=== PATIENT | female | born 1980 | race Hispanic/Latino ===

== ENCOUNTER 2019-08-26 08:23 | Day surgery (SDC) | payer SELFPAY ==
[~2019-08-26] VITALS: Ht 154.9 cm; Wt 72.6 kg
[~2019-08-26 08:23] MED LIST: BIRTH CONTROL PO; EXCEDRI2 OR; LORTAB 5 OR; PENICILLN VK500 MG OR
[2019-08-26] MEDS ORDERED: PERCOCET 5/325M1 TAB PO (12:13)
[2019-08-26 13:35] VITALS: BP 125/70
== END 2019-08-26 12:56 | disposition home or self-care (01) | DRG 419 ==
LOC: ORM 08:23
PROVIDERS: ATTEND Surgery
PROC: 0FT44ZZ Resection of Gallbladder, Percutaneous Endoscopic Approach (ICD-10-PCS; principal; 2019-08-26)
DX: K80.10 Calculus of gallbladder with chronic cholecystitis without obstruction (principal)
CPT/HCPCS: J0131; J2710

== ENCOUNTER 2019-09-14 15:52 | Emergency (ER) | payer SELFPAY ==
[~2019-09-14] VITALS: Ht 154.9 cm; Wt 155.0 kg
[~2019-09-14 15:52] MED LIST changes: +PERCOCET 5/325M1 TAB PO
[2019-09-14] MEDS ORDERED: PEPCID20 MG PO (17:34)
[2019-09-14] MEDS ORDERED: BENADRYL 25MG C25 MG PO (17:34)
[2019-09-14] MEDS ORDERED: MEDDOSEPAK PO (17:34)
[2019-09-14 18:15] VITALS: BP 123/77
== END 2019-09-14 18:15 | disposition home or self-care (01) | DRG 607 ==
LOC: ED 15:52
DX: L50.0 Allergic urticaria (principal); J02.9 Acute pharyngitis, unspecified

== ENCOUNTER 2022-02-14 18:58 | Emergency (ER) | payer OTHER ==
[~2022-02-14] VITALS: Ht 154.9 cm; Wt 72.0 kg
[~2022-02-14 18:58] MED LIST changes: +BENADRYL 25MG C25 MG PO; +MEDDOSEPAK PO; +PEPCID20 MG PO
[2022-02-14] MEDS ORDERED: VOLTAREN75 MG PO (23:02)
[2022-02-14 23:03] VITALS: BP 139/85
== END 2022-02-14 23:11 | disposition home or self-care (01) | DRG 552 ==
LOC: ED 18:58
DX: S16.1XXA Strain of muscle, fascia and tendon at neck level, initial encounter (principal); S29.012A Strain of muscle and tendon of back wall of thorax, initial encounter; V40.5XXA Car driver injured in collision with pedestrian or animal in traffic accident, initial encounter

== ENCOUNTER 2023-04-18 10:49 | Emergency (ER) | payer SELFPAY ==
[~2023-04-18] VITALS: Ht 154.9 cm; Wt 77.0 kg
[2023-04-18] VITALS (8 sets, daily range): BP systolic 107–133; BP diastolic 61–80
[~2023-04-18 10:49] MED LIST changes: +VOLTAREN75 MG PO
== END 2023-04-18 14:31 | disposition short-term general hospital (02) | DRG 761 ==
LOC: ED 10:49
DX: N93.9 Abnormal uterine and vaginal bleeding, unspecified (principal)